=== PATIENT | male | born 1985 | race Two or more races ===

== ENCOUNTER 2018-07-04 12:29 | Emergency (ER) | payer OTHER ==
[~2018-07-04] VITALS: Ht 177.8 cm; Wt 81.2 kg
[2018-07-04 12:47] VITALS: BP 132/86
[2018-07-04] MEDS ORDERED: ONDANSETRON 4 MG TAB.RAPDIS ONE (12:53)
[2018-07-04] MEDS ORDERED: HYDROCODONE/APAP 10/325MG 1 EA TABLET ONE (12:53)
[2018-07-04] MEDS ORDERED: HYDROCODONE/APAP 10/325MG 1 EA TABLET PO ONE (13:00)
[2018-07-04] MEDS ORDERED: ONDANSETRON 4 MG TAB.RAPDIS SL ONE (13:00)
== END 2018-07-04 13:05 | disposition home or self-care (01) ==
LOC: ER 12:39
DX: K02.9 Dental caries, unspecified (principal); K04.7 Periapical abscess without sinus; F17.200 Nicotine dependence, unspecified, uncomplicated; Z60.2 Problems related to living alone
CPT/HCPCS: A4606; Q0162

== ENCOUNTER 2019-04-12 06:15 | Emergency (ER) | payer OTHER ==
[~2019-04-12] VITALS: Ht 176.5 cm; Wt 77.1 kg
[2019-04-12 06:28] VITALS: BP 151/91
[2019-04-12] MEDS ORDERED: ACETAMINOPHEN ES 500 MG TABLET ONE (06:57)
[2019-04-12] MEDS ORDERED: ACETAMINOPHEN ES 500 MG TABLET PO ONE (07:00)
== END 2019-04-12 07:09 | disposition home or self-care (01) ==
LOC: ER 06:15
DX: K08.89 Other specified disorders of teeth and supporting structures (principal); S02.5XXA Fracture of tooth (traumatic), initial encounter for closed fracture; F17.200 Nicotine dependence, unspecified, uncomplicated; Z60.2 Problems related to living alone; X58.XXXA Exposure to other specified factors, initial encounter; Y93.89 Activity, other specified; Y92.89 Other specified places as the place of occurrence of the external cause; Y99.8 Other external cause status

== ENCOUNTER 2019-06-20 20:48 | Emergency (ER) | payer OTHER ==
[~2019-06-20] VITALS: Ht 175.3 cm; Wt 74.8 kg
--- NOTE | 2019-06-20 20:59 | NUR ---
33/M Pt CAME FROM HOME. WENT TO URGENT CARE EARLIER AND WAS TOLD TO GO TO THE ER. Pt IS C/O ZEFERINO FLANK PAIN WITH LOWER BACK PAIN. PER Pt STATEMENT HAS BEEN HAVING THIS PROBLEM ON AND OFF FOR THE PAST YEAR. Pt IS ACCOMPANIED BY SISTER AT BEDSIDE. Pt IS A/OX4, VERBAL, ABLE TO MAKE NEEDS KNOWN. Pt IS RESTING IN BED. VS STABLE. SEEN BY [facility] MANAGER AT BEDSIDE.
--- NOTE | 2019-06-20 21:00 | NUR ---
urine collected sent to lab
--- NOTE | 2019-06-20 21:18 | NUR ---
CT done at bedside
--- NOTE | 2019-06-20 21:19 | NUR ---
CALLED FILTRATION SUPERVISOR FOR SCROTAL ULTRASOUND
[2019-06-20 21:30] LABS: BASOPHILS # (AUTO) 0.1 /CMM (0.0-0.2); EOSINOPHILS % (AUTO) 2.7 % (0.0-6.0); HEMATOCRIT 46 % (39-51); HEMOGLOBIN 15.4 g/dL (13.5-17.5); LYMPHOCYTES # (AUTO) 1.2 /CMM (0.8-4.8); LYMPHOCYTES % (AUTO) 14.9 % (20.0-44.0); MEAN CORPUSCULAR HGB CONC 34 g/dl (31.0-36.0); MEAN CORPUSCULAR VOLUME 93 fL (80-96); MONOCYTES # (AUTO) 0.8 /CMM (0.1-1.30); MONOCYTES % (AUTO) 9.2 % (2.0-12.0); NEUTROPHILS % (AUTO) 72.2 % (43.0-81.0); PLATELET COUNT (AUTO) 201 /CMM (150-450); RED BLOOD CELL COUNT(AUTO) 4.89 MIL/uL (4.5-6.0); WHITE BLOOD COUNT (AUTO) 8.3 K/uL (4.3-11.0)
[2019-06-20 21:37] LABS: CALCIUM, SERUM 8.8 mg/dL (8.5-10.1); CREATININE 1.3 mg/dL (0.6-1.3); POTASSIUM 3.8 mmol/L (3.5-5.1)
[2019-06-20 21:43] LABS: ALBUMIN 3.3 g/dL (3.4-5.0); BILIRUBIN,DIRECT 0.1 mg/dL (0.0-0.2); BILIRUBIN,TOTAL 0.3 mg/dL (0.2-1.0); TOTAL PROTEIN, SERUM 6.5 g/dL (6.4-8.2)
--- NOTE | 2019-06-20 22:06 | NUR ---
US scrotum being done at bedside
[2019-06-20 22:13] LABS: APPEARANCE,URINE Cloudy (CLEAR); BILIRUBIN,URINE Negative (NEGATIVE); BLOOD, URINE Negative Ery/uL (NEGATIVE); COLOR,URINE Yellow (YELLOW); KETONES,URINE Negative (NEGATIVE); LEUKOCYTE ESTERASE ,URINE Negative (NEGATIVE); NITRITE, URINE Negative (NEGATIVE); PH,URINE 8.5 (5.0-8.0); PROTEIN,URINE Negative (NEGATIVE); UGLUCOSE Negative (NEGATIVE); UROBILINOGEN,URINE 0.2 EU/dL (0.2)
[2019-06-20] MEDS ORDERED: CEFTRIAXONE 500 MG VIAL ONE (22:54)
[2019-06-20] MEDS ORDERED: LIDOCAINE /MPF 1% VIAL 5 ML VIAL ONE (22:54)
[2019-06-20] MEDS ORDERED: CEFTRIAXONE 500 MG VIAL IM ONE (23:00)
--- NOTE | 2019-06-20 23:04 | NUR ---
CARD READER TALKING WITH Pt AT BEDSIDE
--- NOTE | 2019-06-20 23:28 | NUR ---
ALL ORDERED MEDS GIVEN.
--- NOTE | 2019-06-20 23:31 | NUR ---
Patient discharged to home in stable condition. Written and verbal after care instructions given. Patient verbalizes understanding of instruction. Patient left facility on foot with steady gait. Sister at side, will be taking pt back home. No s/s of acute distress or sob noted. vs stable. no iv access. ID band removed.
[2019-06-20 23:34] VITALS: BP 130/82
== END 2019-06-20 23:35 | disposition home or self-care (01) ==
LOC: ER 20:51
DX: K59.00 Constipation, unspecified (principal); N50.89 Other specified disorders of the male genital organs; E23.0 Hypopituitarism; F17.200 Nicotine dependence, unspecified, uncomplicated; Z60.2 Problems related to living alone
CPT/HCPCS: 36415; 74176; 76870; 80048; 80076; 81001; 83690; 85025; 96372; 99284; J0696; J3490; 81000-TC

== ENCOUNTER 2019-06-25 06:16 | Emergency (ER) | payer OTHER ==
[~2019-06-25] VITALS: Ht 175.3 cm; Wt 72.6 kg
--- NOTE | 2019-06-25 06:40 | NUR ---
BIBS FROM HOME TO ER BED 9. AAOX4. NO RESP DISTRESS NOTED. AMBULATORY. ANXIOUS. CAME IN FOR TESTICLULAR PAIN. PT RATS PAIN 02/13 AND STATES THAT HE HAD RECENTLY BEEN DIAGOSED WITH TESTICULAR MASS AND AWAITING REFERRAL FROM INSURANCE. TESTICLE APPEARS RED BUT NO SWELLING NOTED. MD WAS AT BEDSIDE FOR EVAL. [facility] IS BEING CONTACTED.
--- NOTE | 2019-06-25 06:46 | NUR ---
[facility]. WAITING FOR CALL BACK FROM [facility] INVESTIGATOR
--- NOTE | 2019-06-25 07:07 | NUR ---
DR. DAVIS ON THE PHONE WITH [facility]
[2019-06-25] MEDS ORDERED: HYDROCODONE/APAP 5/325MG 1 EACH TABLET ONE (07:11)
--- NOTE | 2019-06-25 07:24 | NUR ---
Patient discharged to home in stable condition. Written and verbal after care instructions given. Patient verbalizes understanding of instruction. Pt ambulatory with a steady gait
[2019-06-25 07:25] VITALS: BP 145/83
[2019-06-25] MEDS ORDERED: HYDROCODONE/APAP 5/325MG 1 EACH TABLET PO ONE (07:30)
== END 2019-06-25 07:27 | disposition home or self-care (01) ==
LOC: ER 06:16
DX: N50.89 Other specified disorders of the male genital organs (principal); F17.200 Nicotine dependence, unspecified, uncomplicated; Z60.2 Problems related to living alone

== ENCOUNTER 2019-08-27 03:15 | Emergency (ER) | payer OTHER ==
[~2019-08-27] VITALS: Ht 177.8 cm; Wt 77.1 kg
[2019-08-27 03:35] VITALS: BP 159/116
--- NOTE | 2019-08-27 03:58 | NUR ---
URINE SENT TO LAB
[2019-08-27 04:22] LABS: APPEARANCE,URINE Clear (CLEAR); BILIRUBIN,URINE Negative (NEGATIVE); BLOOD, URINE Trace-intact Ery/uL (NEGATIVE); COLOR,URINE Yellow (YELLOW); KETONES,URINE Negative (NEGATIVE); LEUKOCYTE ESTERASE ,URINE Negative (NEGATIVE); NITRITE, URINE Negative (NEGATIVE); PROTEIN,URINE Negative (NEGATIVE); UGLUCOSE Negative (NEGATIVE); UROBILINOGEN,URINE 0.2 EU/dL (0.2)
--- NOTE | 2019-08-27 04:29 | NUR ---
Patient eloped from facility. ER MD notified.
[2019-08-27 05:02] LABS: BACTERIA,URINE Few /HPF (None Seen); SQUAMOUS EPITHELIAL CELL,UR Rare /HPF (None Seen); WBC,URINE 0-2 /HPF (0-3)
== END 2019-08-27 06:00 | disposition left against medical advice (07) ==
LOC: ER 03:17
DX: R10.9 Unspecified abdominal pain (principal); M54.5 Low back pain; Z60.2 Problems related to living alone; Z87.442 Personal history of urinary calculi; F17.200 Nicotine dependence, unspecified, uncomplicated
CPT/HCPCS: 81000-TC

== ENCOUNTER 2019-09-07 04:34 | Emergency (ER) | payer OTHER ==
[~2019-09-07] VITALS: Ht 175.3 cm; Wt 77.1 kg
[2019-09-07 04:43] VITALS: BP 162/96
[2019-09-07] MEDS ORDERED: IBUPROFEN 600 MG TABLET PO ONE (04:59)
[2019-09-07] MEDS ORDERED: HYDROCODONE/APAP 5/325MG 1 EACH TABLET ONE (05:41)
[2019-09-07] MEDS ORDERED: HYDROCODONE/APAP 5/325MG 1 EACH TABLET PO ONE (06:00)
== END 2019-09-07 05:51 | disposition home or self-care (01) ==
LOC: ER 04:35
DX: K08.89 Other specified disorders of teeth and supporting structures (principal); I10 Essential (primary) hypertension; Z60.2 Problems related to living alone